=== PATIENT | male | born 1955 | race Caucasian/White ===

== ENCOUNTER → 2021-08-12 | Outpatient (CLI) | payer MEDICARE, OTHER ==
[2021-08-12 11:48] LABS: HEMOGLOBIN 14.7 gm/dl (14.0-17.5); RED BLOOD COUNT 5.12 M/UL (4.20-5.50); WHITE BLOOD COUNT 5.9 K/UL (4.5-11.0)
== END ==
LOC: RAD 11:28
PROVIDERS: Registered Nurse
DX: M25.561 Pain in right knee (principal); M25.461 Effusion, right knee; L53.9 Erythematous condition, unspecified; R93.6 Abnormal findings on diagnostic imaging of limbs
CPT/HCPCS: 36415; 73562; 85027